=== PATIENT | male | born 1990 | race Hispanic/Latino ===

== ENCOUNTER → 2023-10-11 13:50 | Outpatient (REF) | payer OTHER, SELFPAY ==
[2023-10-11 18:44] LABS: Hepatitis B Surface Antibody Positive
[2023-10-13 15:09] LABS: Varicella Zoster IgG (VZV) Positive
== END ==
LOC: REG 13:50
PROVIDERS: ATTENDING PHYSICIAN Nurse Practitioner Family
DX: Z23 Encounter for immunization (principal)
CPT/HCPCS: 36415; 86706; 86787